=== PATIENT | male | born 1955 | race Caucasian/White ===

== ENCOUNTER 2020-04-23 15:06 | Emergency (ER) | payer OTHER ==
[~2020-04-23 15:06] MED LIST: CARAFATE1 GM PO; COLACE 100MG C100 MG PO; ONDANSETRON ODT4 MG SL; VISTARIL25 MG PO
[2020-04-23 15:57] LABS: RED BLOOD COUNT 5.38 M/UL (4.20-5.50)
[2020-04-23 16:23] LABS: BUN/CREATININE RATIO 12 (0-10)
[2020-04-23] MEDS ORDERED: PHENERGAN 12.12.5 M1 PO (17:02)
== END 2020-04-23 18:30 | disposition home or self-care (01) ==
LOC: ER1 15:06
PROVIDERS: Emergency Medicine
DX: R11.2 Nausea with vomiting, unspecified (principal); Z88.8 Allergy status to other drugs, medicaments and biological substances
CPT/HCPCS: 80053; 82150; 83690; 85025; 96374; 99284; J2550; J7030